=== PATIENT | female | born 1935 | race Caucasian/White ===

== ENCOUNTER 2019-01-10 13:02 | Emergency (ER) | payer OTHER ==
--- NOTE | 2019-01-10 15:18 | ER ---
Nurse's Notes [facility] Michele Name: Rosalba Solitario Age: 83 yrs Sex: Female : 1935 Arrival Date: 01/10/2019 Time: 13:05 Bed 17 Private MD: Bernardino Dodson T Diagnosis: Impacted cerumen, bilateral;Nasal congestion Presentation: 01/10 13:23 Presenting complaint: Patient states: "I have bad nasal congestion, and my ears are ss stopped up and at night I have a hard time breathing because I guess i'm so stopped up." Symptoms began 3 days ago. Transition of care: patient was not received from another setting of care. Onset of symptoms was January 07, 2019. Risk Assessment: Do you want to hurt yourself or someone else? Patient reports no desire to harm self or others. Initial Sepsis Screen: Does the patient meet any 2 criteria? No. Patient's initial sepsis screen is negative. Does the patient have a suspected source of infection? No. Patient's initial sepsis screen is negative. Care prior to arrival: None. 13:23 Method Of Arrival: Ambulatory ss 13:23 Acuity: GREGG 4 ss Historical: - Allergies: 13:24 No Known Allergies; ss - PMHx: 13:25 Hypertension; High Cholesterol; ss - PSHx: 13:25 None; ss - Immunization history:: Adult Immunizations up to date. - Social history:: Smoking status: Patient/guardian denies using tobacco. - Ebola Screening: : Patient denies exposure to infectious person Patient denies travel to an Ebola-affected area in the 21 days before illness onset. Screenin:14 Abuse screen: Denies threats or abuse. Nutritional screening: No deficits noted. em Tuberculosis screening: No symptoms or risk factors identified. 14:14 Fall Risk None identified. em Assessment: 15:18 General: Appears in no apparent distress. comfortable, Behavior is calm, cooperative, em Denies fever. Pain: Complains of pain in left ear. Neuro: Level of Consciousness is awake, alert, obeys commands, Oriented to person, place, time, situation. Cardiovascular: Capillary refill < 3 seconds Patient's skin is warm and dry. Respiratory: Airway is patent Respiratory effort is even, unlabored, Respiratory pattern is regular, symmetrical. GI: Patient currently denies nausea, vomiting. EENT: Reports nasal congestion since for 3 days pain in left ear. Derm: Skin is intact, is healthy with good turgor, Skin is pink, warm \\T\\ dry. Musculoskeletal: Capillary refill < 3 seconds, Range of motion: intact in all extremities. 15:20 General: The previous assessment is accurate, call light remains within reach. . Vital Signs: 13:25 BP 132 / 66; Pulse 89; Resp 17; Temp 97.9(O); Pulse Ox 95% on R/A; Weight 83.91 kg; ss Height 5 ft. 1 in. (154.94 cm); Pain 0/10; 13:25 Body Mass Index 34.96 (83.91 kg, 154.94 cm) ED Course: 13:05 Patient arrived in ED. mr 13:06 Bernardino Dodson MD is Private Physician. mr 13:24 Triage completed. ss 13:25 Arm band placed on right wrist. ss 13:31 Kody Clarke PA is PHCP. cp 13:31 Jesus Lopez MD is Attending Physician. cp 13:59 Strep swab sent to lab. dh3 14:14 Patient has correct armband on for positive identification. Placed in gown. Bed in low em position. Call light in reach. 14:15 Michael Subramanian LVN is Primary Nurse. em 14:55 Ear irrigation: Route left ear with Other with warm water and peroxide amount Other dh3 400mL Patient tolerated well. 15:07 Nancy Hernandez MD is Referral Physician. cp 15:20 No provider procedures requiring assistance completed. Patient did not have IV access em during this emergency room visit. Administered Medications: No medications were administered Outcome: 15:10 Discharge ordered by . cp 15:20 Discharged to home ambulatory. em 15:20 Condition: good 15:20 Discharge instructions given to patient, Instructed on discharge instructions, follow up and referral plans. medication usage, Demonstrated understanding of instructions, follow-up care, medications, Prescriptions given X 2. 15:21 Patient left the ED. em Signatures: Santiago Hannah mr Michael Subramanian LVN LVN em Mattie Dumont RN RN Kody Clarke PA PA cp Herrera, Deanna 3 Corrections: (The following items were deleted from the chart) 13:26 13:23 Presenting complaint: Patient states: "I have bad nasal congestion, and my ears ss are stopped up and at night I have a hard time breathing because I guess i'm so stopped up." ss
--- NOTE | 2019-01-10 15:19 | EDPHYS ---
Physician Documentation [facility] Karen Name: Rosalba Solitario Age: 83 yrs Sex: Female : 1935 Arrival Date: 01/10/2019 Time: 13:05 Bed 17 Private MD: Bernardino Dodson T ED Physician Jesus Lopez HPI: 01/10 13:55 This 83 yrs old Female presents to ER via Ambulatory with complaints of Sinus cp Congestion, Ear Pain. 13:55 The patient or guardian reports nasal congestion, sore throat. Onset: The cp symptoms/episode began/occurred 3 day(s) ago. Associated signs and symptoms: Pertinent positives: decreased hearing, Pertinent negatives: fever, sinus pressure, headache. Historical: - Allergies: 13:24 No Known Allergies; ss - PMHx: 13:25 Hypertension; High Cholesterol; ss - PSHx: 13:25 None; ss - Immunization history:: Adult Immunizations up to date. - Social history:: Smoking status: Patient/guardian denies using tobacco. - Ebola Screening: : Patient denies exposure to infectious person Patient denies travel to an Ebola-affected area in the 21 days before illness onset. ROS: 14:00 Constitutional: Negative for body aches, chills, fever, poor PO intake. cp 14:00 Eyes: Negative for injury, pain, redness, and discharge. cp 14:00 ENT: Positive for hearing loss, sore throat, nasal congestion, Negative for drainage from ear(s), ear pain. 14:00 Cardiovascular: Negative for chest pain. 14:00 Respiratory: Positive for cough, with no reported sputum, Negative for shortness of breath, wheezing. 14:00 Abdomen/GI: Negative for abdominal pain, nausea, vomiting, and diarrhea. 14:00 Skin: Negative for rash. 14:00 Neuro: Negative for headache. 14:00 All other systems are negative. Exam: 14:10 Constitutional: The patient appears in no acute distress, alert, awake, non-toxic, well cp developed, well nourished. 14:10 Head/Face: Normocephalic, atraumatic. cp 14:10 Eyes: Periorbital structures: appear normal, Conjunctiva: normal, no exudate, no injection, Lids and lashes: appear normal, bilaterally. 14:10 ENT: External ear(s): are unremarkable, Ear canal(s): cerumen impaction, that is moderate, bilaterally, TM's: not visable, because of cerumen, Nose: is normal, Mouth: Lips: moist, Oral mucosa: moist, Posterior pharynx: Airway: no evidence of obstruction, patent, Tonsils: no enlargement, no erythema, no exudate, Uvula: midline, exudate, is not appreciated. 14:10 Neck: ROM/movement: is normal, is supple, without pain, no range of motions limitations, no meningismus, no nuchal rigidity, Lymph nodes: no appreciated lymphadenopathy. 14:10 Chest/axilla: Inspection: normal, Palpation: is normal, no crepitus, no tenderness. 14:10 Cardiovascular: Rate: normal, Rhythm: regular. 14:10 Respiratory: the patient does not display signs of respiratory distress, Respirations: normal, no use of accessory muscles, no retractions, no splinting, no tachypnea, labored breathing, is not present, Breath sounds: are clear throughout, no decreased breath sounds, no stridor, no wheezing. 14:10 Abdomen/GI: Exam negative for discomfort, distension, guarding, Inspection: abdomen appears normal. 14:10 Skin: no rash present. Vital Signs: 13:25 BP 132 / 66; Pulse 89; Resp 17; Temp 97.9(O); Pulse Ox 95% on R/A; Weight 83.91 kg; ss Height 5 ft. 1 in. (154.94 cm); Pain 0/10; 13:25 Body Mass Index 34.96 (83.91 kg, 154.94 cm) MDM: 13:31 Patient medically screened. cp 14:00 Differential Diagnosis: Upper Respiratory Infection Sinusitis Pharyngitis Otitis Media cp Viral Syndrome Pneumonia. 15:10 Data reviewed: vital signs, nurses notes, lab test result(s). cp 15:10 Counseling: I had a detailed discussion with the patient and/or guardian regarding: the cp historical points, exam findings, and any diagnostic results supporting the discharge/admit diagnosis, lab results, the need for outpatient follow up, an ENT specialist, to return to the emergency department if symptoms worsen or persist or if there are any questions or concerns that arise at home. Response to treatment: the patient's symptoms have mildly improved after treatment, and as a result, I will discharge patient. 01/10 13:47 Order name: Strep cp Administered Medications: No medications were administered Disposition: 01/10/19 15:10 Discharged to Home. Impression: Impacted cerumen, bilateral, Nasal congestion. - Condition is Stable. - Discharge Instructions: Earwax Buildup, Adult, Ear Irrigation. - Prescriptions for Nasonex 50 mcg/actuation Nasal spray,non- aerosol - spray 2 spray by INTRANASAL route once daily As needed; 1 unit. Zyrtec 10 mg Oral Tablet - take 1 tablet by ORAL route once daily As needed; 20 tablet. - Medication Reconciliation Form, Thank You Letter, Antibiotic Education, Prescription Opioid Use form. - Follow up: Nancy Hernandez MD; When: 2 - 3 days; Reason: Recheck today's complaints. - Problem is new. - Symptoms have improved. Addendum: 01/12/2019 07:05 Co-signature as Attending Physician, Jesus Lopez MD. r n Signatures: Dispatcher [employer] EDFL Michael Subramanian, FARM MECHANIC FARM MECHANIC em Jesus Lopez MD MD rn Smirch, Shelby, RN RN ss Kody Clarke PA PA cp Corrections: (The following items were deleted from the chart) 01/10 15:21 15:10 01/10/2019 15:10 Discharged to Home. Impression: Impacted cerumen, bilateral; em Nasal congestion. Condition is Stable. Forms are Medication Reconciliation Form, Thank You Letter, Antibiotic Education, Prescription Opioid Use. Follow up: Nancy Hernandez; When: 2 - 3 days; Reason: Recheck today's complaints. Problem is new. Symptoms have improved. cp
== END 2019-01-10 15:21 | disposition home or self-care (01) ==
LOC: ER 13:02
DX: R09.81 Nasal congestion (principal); H61.23 Impacted cerumen, bilateral; I10 Essential (primary) hypertension; E78.00 Pure hypercholesterolemia, unspecified
CPT/HCPCS: 87070; 87081; 99283

== ENCOUNTER 2019-10-09 11:06 | Emergency (ER) | payer OTHER ==
--- NOTE | 2019-10-09 12:35 | RAD REPORT ---
EXAM DESCRIPTION: RAD - Knee Left 3 View - 10/09/2019 12:27 pm CLINICAL HISTORY: PAINpersistent pain following fall 1 week earlier COMPARISON: No comparisons FINDINGS: No fracture, dislocation or periosteal reaction.No joint effusion seen. No joint space rosas rowing. Mild for age marginal spurring changes are present. Mild edema seen anterior to the knee. IMPRESSION: Mild degenerative change with no acute bone or joint finding. Mild edema or contusion anterior to the knee. Clinical concerns for internal derangement or occult bony injury could be further assessed with MR im aging.
--- NOTE | 2019-10-09 12:50 | ER ---
Nurse's Notes [facility] Michele Name: Rosalba Solitario Age: 83 yrs Sex: Female : 1935 Arrival Date: 10/09/2019 Time: 11:08 Bed 26 Private MD: Bernardino Dodson T Diagnosis: Pain in left knee Presentation: 10/08 12:10 Chief complaint: Patient states: PT fell a week ago now C/O left knee pain when wh walking. Coronavirus screen: The patient has NOT traveled to a country currently being monitored by the [facility] within the last 14 days. Ebola Screen: Patient negative for fever greater than or equal to 101.5 degrees Fahrenheit, and additional compatible Ebola Virus Disease symptoms Patient denies exposure to infectious person. Initial Sepsis Screen: Does the patient meet any 2 criteria? No. Patient's initial sepsis screen is negative. Does the patient have a suspected source of infection? No. Patient's initial sepsis screen is negative. Risk Assessment: Do you want to hurt yourself or someone else? Patient reports no desire to harm self or others. 12:10 Method Of Arrival: Wheelchair 12:10 Acuity: GREGG 4 12:15 Onset of symptoms is unknown. Historical: - Allergies: 12:15 No Known Allergies; - Home Meds: 12:15 BP meds [Active]; Cholesterol meds [Active]; - PMHx: 12:15 High Cholesterol; Hypertension; Stroke; - PSHx: 12:15 None; - Immunization history:: Adult Immunizations not up to date. - Social history:: Smoking status: Patient/guardian denies using. Screenin:12 Abuse screen: Denies threats or abuse. Denies injuries from another. Nutritional screening: No deficits noted. Tuberculosis screening: No symptoms or risk factors identified. Fall Risk Fall in past 12 months (25 points). Assessment: 12:12 General: Appears in no apparent distress. Behavior is calm, cooperative, appropriate for age. Pain: Complains of pain in left knee Pain does not radiate. Pain currently is 7 out of 10 on a pain scale. Quality of pain is described as aching, Pain began a week ago Aggravated by weight bearing. Neuro: Level of Consciousness is awake, alert, obeys commands, Oriented to person, place, time, situation, Appropriate for age. Cardiovascular: Capillary refill < 3 seconds. Respiratory: Airway is patent Respiratory effort is even, unlabored, Respiratory pattern is regular, symmetrical. GI: Abdomen is flat, non-distended. : No signs and/or symptoms were reported regarding the genitourinary system. EENT: No signs and/or symptoms were reported regarding the EENT system. Derm: Skin is intact, is healthy with good turgor, Skin is pink, warm \T\ dry. normal. Musculoskeletal: Circulation, motion, and sensation intact. 13:23 Reassessment: Patient appears in no apparent distress at this time. No changes from previously documented assessment. Patient and/or family updated on plan of care and expected duration. Pain level reassessed. Patient is alert, oriented x 3, equal unlabored respirations, skin warm/dry/pink. Vital Signs: 12:10 BP 130 / 66; Pulse 78; Resp 18; Temp 97.6; Pulse Ox 100% ; Weight 81.65 kg; Height 5 wh ft. 2 in. (157.48 cm); Pain 7/10; 13:23 BP 149 / 72; Pulse 90; Resp 18; Pulse Ox 99% on R/A; wh 12:10 Body Mass Index 32.92 (81.65 kg, 157.48 cm) ED Course: 11:08 Patient arrived in ED. mr 11:09 Bernardino Dodson MD is Private Physician. mr 11:54 Goldie Atkins FNP-C is [facility]. kb 11:54 John River MD is Attending Physician. kb 12:02 Amanda Mcnair is Primary Nurse. 12:11 Triage completed. 12:14 Arm band placed on right wrist. 12:15 Patient has correct armband on for positive identification. Bed in low position. Call light in reach. Side rails up X 1. Pulse ox on. NIBP on. 12:26 X-ray completed. Portable x-ray completed in exam room. Patient tolerated procedure jb2 well. 12:31 Knee Left 3 View XRAY In Process Unspecified. EDMS 13:24 No provider procedures requiring assistance completed. Patient did not have IV access during this emergency room visit. Administered Medications: No medications were administered Outcome: 12:50 Discharge ordered by . kb 13:24 Discharged to home via wheelchair. wh 13:24 Condition: stable 13:24 Discharge instructions given to patient, Instructed on discharge instructions, follow up and referral plans. POC Demonstrated understanding of instructions, follow-up care, splint care. 13:24 Patient left the ED. Signatures: Dispatcher [employer] Goldie Marrero, OVEN TENDER-Nati OVEN TENDER-Hannah Laura mr Smith, Amanda Myers
--- NOTE | 2019-10-09 12:51 | EDPHYS ---
Physician Documentation [facility] Michele Name: Rosalba Solitario Age: 83 yrs Sex: Female : 1935 Arrival Date: 10/09/2019 Time: 11:08 Bed 26 Private MD: Bernardino Dodson T ED Physician John River HPI: 10/08 12:01 This 83 yrs old Female presents to ER via Unassigned with complaints of Leg kb Pain. 12:01 The patient presents with pain, that is acute. The complaints affect the left knee. kb Context: The problem was sustained at home, resulted from twisting of the extremity, the patient can fully bear weight, the patient is able to ambulate. Onset: The symptoms/episode began/occurred 1 week(s) ago. Modifying factors: The symptoms are alleviated by nothing. the symptoms are aggravated by weight bearing. Associated signs and symptoms: The patient has no apparent associated signs or symptoms. Treatment prior to arrival includes: no previous treatment. Severity of symptoms: At their worst the symptoms were moderate, in the emergency department the symptoms are unchanged. The patient has not experienced similar symptoms in the past. The patient has not recently seen a physician. Pt reports she was sitting in the living room and heard something in the kitchen so she jumped up and twisted left knee. Reports this happened a week ago and it hasn't gotten any better. States it is difficult to go up and down stairs. . Historical: - Allergies: 12:15 No Known Allergies; - Home Meds: 12:15 BP meds [Active]; Cholesterol meds [Active]; - PMHx: 12:15 High Cholesterol; Hypertension; Stroke; - PSHx: 12:15 None; - Immunization history:: Adult Immunizations not up to date. - Social history:: Smoking status: Patient/guardian denies using. ROS: 12:05 Constitutional: Negative for fever, chills, and weight loss, Neck: Negative for injury, kb pain, and swelling, Cardiovascular: Negative for chest pain, palpitations, and edema, Respiratory: Negative for shortness of breath, cough, wheezing, and pleuritic chest pain, Abdomen/GI: Negative for abdominal pain, nausea, vomiting, diarrhea, and constipation, Back: Negative for injury and pain, Skin: Negative for injury, rash, and discoloration, Neuro: Negative for headache, weakness, numbness, tingling, and seizure. 12:05 MS/extremity: Positive for pain, of the left knee. Exam: 12:05 Constitutional: This is a well developed, well nourished patient who is awake, alert, kb and in no acute distress. Head/Face: Normocephalic, atraumatic. Neck: Trachea midline, no thyromegaly or masses palpated, and no cervical lymphadenopathy. Supple, full range of motion without nuchal rigidity, or vertebral point tenderness. No Meningismus. Chest/axilla: Normal chest wall appearance and motion. Nontender with no deformity. No lesions are appreciated. Cardiovascular: Regular rate and rhythm with a normal S1 and S2. No gallops, murmurs, or rubs. Normal PMI, no JVD. No pulse deficits. Respiratory: Lungs have equal breath sounds bilaterally, clear to auscultation and percussion. No rales, rhonchi or wheezes noted. No increased work of breathing, no retractions or nasal flaring. Abdomen/GI: Soft, non-tender, with normal bowel sounds. No distension or tympany. No guarding or rebound. No evidence of tenderness throughout. Back: No spinal tenderness. No costovertebral tenderness. Full range of motion. Skin: Warm, dry with normal turgor. Normal color with no rashes, no lesions, and no evidence of cellulitis. MS/ Extremity: Pulses equal, no cyanosis. Neurovascular intact. Full, normal range of motion. Neuro: Awake and alert, GCS 15, oriented to person, place, time, and situation. Cranial nerves II-XII grossly intact. Motor strength 5/5 in all extremities. Sensory grossly intact. Cerebellar exam normal. Normal gait. Vital Signs: 12:10 BP 130 / 66; Pulse 78; Resp 18; Temp 97.6; Pulse Ox 100% ; Weight 81.65 kg; Height 5 wh ft. 2 in. (157.48 cm); Pain 7/10; 13:23 BP 149 / 72; Pulse 90; Resp 18; Pulse Ox 99% on R/A; wh 12:10 Body Mass Index 32.92 (81.65 kg, 157.48 cm) MDM: 11:54 Patient medically screened. kb 12:01 Differential diagnosis: closed fracture, contusion, sprain. Data reviewed: vital signs, kb nurses notes. 12:49 Data interpreted: Pulse oximetry: on room air is 100 %. Interpretation: normal. kb Counseling: I had a detailed discussion with the patient and/or guardian regarding: the historical points, exam findings, and any diagnostic results supporting the discharge/admit diagnosis, radiology results, the need for outpatient follow up, a orthopedic surgeon, to return to the emergency department if symptoms worsen or persist or if there are any questions or concerns that arise at home. 10/08 12:00 Order name: Knee Left 3 View XRAY; Complete Time: 12:49 kb 03 12:49 Order name: Knee Immobilizer; Complete Time: 13:23 kb Administered Medications: No medications were administered Disposition: 17:16 Co-signature as Attending Physician, John River MD I agree with the assessment and kdr plan of care. Disposition: 10/09/19 12:50 Discharged to Home. Impression: Pain in left knee. - Condition is Stable. - Discharge Instructions: Knee Pain, [id number]. - Medication Reconciliation Form, Thank You Letter, Antibiotic Education, Prescription Opioid Use form. - Follow up: Emergency Department; When: As needed; Reason: Worsening of condition. Follow up: Private Physician; When: 2 - 3 days; Reason: Recheck today's complaints, Continuance of care, Re-evaluation by your physician. Signatures: Dispatcher [employer] EDPR Goldie Atkins, MEDICAL OFFICE REPRESENTATIVE-C MEDICAL OFFICE REPRESENTATIVE-Ckb John River MD MD [facility] Amanda Mcnair Corrections: (The following items were deleted from the chart) 13:24 12:50 10/09/2019 12:50 Discharged to Home. Impression: Pain in left knee. Condition is wh Stable. Forms are Medication Reconciliation Form, Thank You Letter, Antibiotic Education, Prescription Opioid Use. Follow up: Emergency Department; When: As needed; Reason: Worsening of condition. Follow up: Private Physician; When: 2 - 3 days; Reason: Recheck today's complaints, Continuance of care, Re-evaluation by your physician. kb
[2019-10-09 13:29] VITALS: TEMP 97.6
[2019-10-09 13:30] VITALS: BP 149/72; O2SAT 99
== END 2019-10-09 13:24 | disposition home or self-care (01) ==
LOC: ER 11:06
DX: M25.562 Pain in left knee (principal); I10 Essential (primary) hypertension; E78.00 Pure hypercholesterolemia, unspecified
CPT/HCPCS: 99283

== ENCOUNTER 2020-04-17 10:36 | Emergency (ER) | payer OTHER ==
[2020-04-17] MEDS ORDERED: ACETAMINOPHEN 325 MG TABLET ONE (11:25)
--- NOTE | 2020-04-17 11:38 | ER ---
Nurse's Notes [facility] Michele Name: Rosalba Solitario Age: 84 yrs Sex: Female : 1935 Arrival Date: 04/17/2020 Time: 10:38 Bed 20 Private MD: Bernardino Dodson T Diagnosis: Displaced fracture of lateral malleolus of right fibula Presentation: 04/17 10:55 Chief complaint: Right ankle and foot pain after mechanical fall from standing onto hb knees 3 days ago. Coronavirus screen: At this time, the client does not indicate any symptoms associated with coronavirus-19. Ebola Screen: No symptoms or risks identified at this time. Initial Sepsis Screen: Does the patient meet any 2 criteria? No. Patient's initial sepsis screen is negative. Does the patient have a suspected source of infection? No. Patient's initial sepsis screen is negative. Risk Assessment: Do you want to hurt yourself or someone else? Patient reports no desire to harm self or others. Onset of symptoms was April 14, 2020. 10:55 Method Of Arrival: Ambulatory hb 10:55 Acuity: GREGG 4 hb Historical: - Allergies: 10:57 No Known Drug Allergies; hb - Home Meds: 10:57 BP meds [Active]; cholesterol meds [Active]; hb - PMHx: 10:57 High Cholesterol; Hypertension; stroke; hb - PSHx: 10:57 None; hb - Immunization history:: Adult Immunizations up to date. - Social history:: Smoking status: Patient denies any tobacco usage or history of. - Family history:: not pertinent. Screenin:58 Abuse screen: Denies threats or abuse. Denies injuries from another. Nutritional hb screening: No deficits noted. Tuberculosis screening: No symptoms or risk factors identified. Fall Risk None identified. Assessment: 10:58 General: Appears in no apparent distress. Behavior is calm, cooperative. Pain: Pain hb currently is 6 out of 10 on a pain scale. Neuro: Level of Consciousness is awake, alert, obeys commands, Oriented to person, place, time, situation. Cardiovascular: Capillary refill < 3 seconds Patient's skin is warm and dry. Respiratory: Airway is patent Respiratory effort is even, unlabored, Respiratory pattern is regular, symmetrical. GI: No signs and/or symptoms were reported involving the gastrointestinal system. : No signs and/or symptoms were reported regarding the genitourinary system. EENT: No signs and/or symptoms were reported regarding the EENT system. Derm: Skin is pink, warm \T\ dry. Musculoskeletal: Reports right ankle pain. 11:36 Reassessment: Patient appears in no apparent distress at this time. Patient and/or hb family updated on plan of care and expected duration. Pain level reassessed. Patient is alert, oriented x 3, equal unlabored respirations, skin warm/dry/pink. Vital Signs: 10:55 BP 158 / 100; Pulse 63; Resp 16; Temp 98.3; Pulse Ox 100% ; Weight 77.11 kg; Height 5 hb ft. 3 in. (160.02 cm); Pain 6/10; 10:55 Body Mass Index 30.11 (77.11 kg, 160.02 cm) hb ED Course: 10:38 Patient arrived in ED. ds1 10:38 Bernardino Dodson MD is Private Physician. ds1 10:48 Kody Sharma MD is Attending Physician. rohit 10:54 Latricia Bennett, JUDD is Primary Nurse. hb 10:57 Triage completed. hb 10:57 Arm band placed on. hb 10:58 Patient has correct armband on for positive identification. Bed in low position. Call hb light in reach. Side rails up X 1. 11:24 Ankle Right 3 View XRAY In Process Unspecified. EDMS 11:27 Foot Right 3 View XRAY In Process Unspecified. EDMS 11:37 Bernardino Dodson MD is Referral Physician. rohit 11:37 Luiz Raymundo MD is Referral Physician. rohit 11:56 No provider procedures requiring assistance completed. Patient did not have IV access hb during this emergency room visit. Administered Medications: 11:15 Drug: Tylenol 650 mg Route: PO; 11:58 Follow up: Response: No adverse reaction hb 11:35 Drug: [place] 5 mg-325 mg 1 tabs Route: PO; hb 11:59 Follow up: Response: No adverse reaction hb Outcome: 11:38 Discharge ordered by . rohit 12:02 Patient left the ED. aj1 Signatures: Dispatcher [employer] Marga Sharma RN RN aj1 Kody Sharma MD MD cha Sanford, Demi ds1 Bennett, Latricia, RN RN hb Cueto, Eden, RN RN ah
--- NOTE | 2020-04-17 11:38 | EDPHYS ---
Physician Documentation [facility] Karen Name: Rosalba Solitario Age: 84 yrs Sex: Female : 1935 Arrival Date: 04/17/2020 Time: 10:38 Bed 20 Private MD: Bernardino Dodson T ED Physician Kody Sharma HPI: 04/17 11:31 This 84 yrs old Female presents to ER via Ambulatory with complaints of Ankle rohit Injury. 11:31 The patient presents with an abrasion, an abscess, a bite, a burn, a contusion, a crush rohit injury, a deformity, a laceration, a history of running out of pain medications, a penetrating injury, a puncture wound, a rash. The complaints affect the right ankle, right ankle. Onset: The symptoms/episode began/occurred 3 day(s) ago. Context: resulted from the patient falling, The mechanism of injury involved inversion of the affected ankle. The patient can partially bear weight on the affected extremity. Associated signs and symptoms: The patient has no apparent associated signs or symptoms. Modifying factors: The symptoms are alleviated by elevation of extremity, ice packs, the symptoms are aggravated by weight bearing, movement. Severity of symptoms: At their worst the symptoms were mild, moderate, in the emergency department the symptoms are unchanged. The patient has not experienced similar symptoms in the past. Historical: - Allergies: 10:57 No Known Drug Allergies; hb - Home Meds: 10:57 BP meds [Active]; cholesterol meds [Active]; hb - PMHx: 10:57 High Cholesterol; Hypertension; stroke; hb - PSHx: 10:57 None; hb - Immunization history:: Adult Immunizations up to date. - Social history:: Smoking status: Patient denies any tobacco usage or history of. - Family history:: not pertinent. ROS: 11:31 Constitutional: Negative for fever, chills, and weight loss, Eyes: Negative for injury, rohit pain, redness, and discharge, ENT: Negative for injury, pain, and discharge, Neck: Negative for injury, pain, and swelling, Cardiovascular: Negative for chest pain, palpitations, and edema, Respiratory: Negative for shortness of breath, cough, wheezing, and pleuritic chest pain, Abdomen/GI: Negative for abdominal pain, nausea, vomiting, diarrhea, and constipation, Back: Negative for injury and pain, : Negative for injury, bleeding, discharge, and swelling, Skin: Negative for injury, rash, and discoloration, Neuro: Negative for headache, weakness, numbness, tingling, and seizure, Psych: Negative for depression, anxiety, suicide ideation, homicidal ideation, and hallucinations, Allergy/Immunology: Negative for hives, rash, and allergies, Endocrine: Negative for neck swelling, polydipsia, polyuria, polyphagia, and marked weight changes, Hematologic/Lymphatic: Negative for swollen nodes, abnormal bleeding, and unusual bruising. 11:31 MS/extremity: Positive for decreased range of motion, pain, swelling, tenderness. Exam: 11:35 Constitutional: This is a well developed, well nourished patient who is awake, alert, rohit and in no acute distress. Head/Face: Normocephalic, atraumatic. Eyes: Pupils equal round and reactive to light, extra-ocular motions intact. Lids and lashes normal. Conjunctiva and sclera are non-icteric and not injected. Cornea within normal limits. Periorbital areas with no swelling, redness, or edema. ENT: Nares patent. No nasal discharge, no septal abnormalities noted. Tympanic membranes are normal and external auditory canals are clear. Oropharynx with no redness, swelling, or masses, exudates, or evidence of obstruction, uvula midline. Mucous membranes moist. Neck: Trachea midline, no thyromegaly or masses palpated, and no cervical lymphadenopathy. Supple, full range of motion without nuchal rigidity, or vertebral point tenderness. No Meningismus. Chest/axilla: Normal chest wall appearance and motion. Nontender with no deformity. No lesions are appreciated. Cardiovascular: Regular rate and rhythm with a normal S1 and S2. No gallops, murmurs, or rubs. Normal PMI, no JVD. No pulse deficits. Respiratory: Lungs have equal breath sounds bilaterally, clear to auscultation and percussion. No rales, rhonchi or wheezes noted. No increased work of breathing, no retractions or nasal flaring. Abdomen/GI: Soft, non-tender, with normal bowel sounds. No distension or tympany. No guarding or rebound. No evidence of tenderness throughout. Back: No spinal tenderness. No costovertebral tenderness. Full range of motion. Skin: Warm, dry with normal turgor. Normal color with no rashes, no lesions, and no evidence of cellulitis. Neuro: Awake and alert, GCS 15, oriented to person, place, time, and situation. Cranial nerves II-XII grossly intact. Motor strength 5/5 in all extremities. Sensory grossly intact. Cerebellar exam normal. Normal gait. Psych: Awake, alert, with orientation to person, place and time. Behavior, mood, and affect are within normal limits. 11:35 Musculoskeletal/extremity: ROM: full active range of motion, full passive range of motion, limited active range of motion due to pain, limited passive range of motion due to pain, Circulation is intact in all extremities. Sensation intact. Compartment Syndrome exam of affected extremity: is normal. DVT Exam: negative Homans' sign noted on exam, no appreciated bluish discoloration, no erythema, no increased warmth, pain, swelling, tenderness. Vital Signs: 10:55 BP 158 / 100; Pulse 63; Resp 16; Temp 98.3; Pulse Ox 100% ; Weight 77.11 kg; Height 5 hb ft. 3 in. (160.02 cm); Pain 6/10; 10:55 Body Mass Index 30.11 (77.11 kg, 160.02 cm) MDM: 11:02 Patient medically screened. [facility] 11:35 Data reviewed: vital signs, nurses notes, radiologic studies, plain films. [facility] 04/17 10:59 Order name: Ankle Right 3 View XRAY 04/17 11:03 Order name: Foot Right 3 View XRAY [facility] 04/17 11:30 Order name: Walking boot; Complete Time: 11:59 [facility] 04/17 11:30 Order name: Ice pack; Complete Time: 11:35 [facility] Administered Medications: 11:15 Drug: Tylenol 650 mg Route: PO; 11:58 Follow up: Response: No adverse reaction 11:35 Drug: [place] 5 mg-325 mg 1 tabs Route: PO; 11:59 Follow up: Response: No adverse reaction Disposition: 04/17/20 11:38 Discharged to Home. Impression: Displaced fracture of lateral malleolus of right fibula. - Condition is Stable. - Discharge Instructions: Fibular Ankle Fracture Treated With or Without Immobilization, Adult, Fall Prevention in the Home, Fall Prevention in the Home, [id number], Walking Boot. - Prescriptions for Tylenol- Codeine #3 300-30 mg Oral Tablet - take 1 tablet by ORAL route every 4 hours As needed; 24 tablet. - Medication Reconciliation Form, Thank You Letter, Antibiotic Education, Prescription Opioid Use form. - Follow up: Bernardino Dodson MD; When: 2 - 3 days; Reason: Recheck today's complaints, Continuance of care, Re-evaluation by your physician. Follow up: Luiz Raymundo MD; When: 2 - 3 days; Reason: Recheck today's complaints, Continuance of care, Re-evaluation by your physician. - Problem is new. - Symptoms have improved. Signatures: Dispatcher [employer] EDMS Marga Guzman RN RN aj1 Kody Sharma MD MD cha Baxter, Heather, RN RN Eden Cueto RN RN Corrections: (The following items were deleted from the chart) 12:02 11:38 04/17/2020 11:38 Discharged to Home. Impression: Displaced fracture of lateral aj1 malleolus of right fibula. Condition is Stable. Forms are Medication Reconciliation Form, Thank You Letter, Antibiotic Education, Prescription Opioid Use. Follow up: Bernardino Dodson; When: 2 - 3 days; Reason: Recheck today's complaints, Continuance of care, Re-evaluation by your physician. Follow up: Luiz Raymundo; When: 2 - 3 days; Reason: Recheck today's complaints, Continuance of care, Re-evaluation by your physician. Problem is new. Symptoms have improved. rohit
[2020-04-17] MEDS ORDERED: HYDROCODONE/APAP 5/325 MG TAB ONE (11:45)
--- NOTE | 2020-04-17 11:58 | RAD REPORT ---
EXAM DESCRIPTION: RAD - Ankle Right 3 View - 04/17/2020 11:23 am CLINICAL HISTORY: PAIN, right ankle pain COMPARISON: No comparisons FINDINGS: Subtle oblique lucent focus present in the distal fibula. Finding is suspicious for a nond isplaced, nonangulated fracture. Remodeling from a remote fibular fracture is possible and needs az elation with any history of prior fibula/ankle fracture. Distal tibia is intact. Ankle mortise is nor mal. No other evidence for fracture or acute bone process. Soft tissue edema is present. Small plantar spur present. IMPRESSION: Patient has cortical irregularity of the distal fibula suspicious for a nondisplaced, no nangulated fracture. The fibula findings are potentially cortical irregular remodeling from prior fracture. This needs cli nical correlation. Small plantar spur.
--- NOTE | 2020-04-17 12:00 | RAD REPORT ---
EXAM DESCRIPTION: RAD - Foot Right 3 View - 04/17/2020 11:26 am CLINICAL HISTORY: PAIN, fall, foot and ankle pain COMPARISON: No comparisons FINDINGS: Distal fibula findings are separately detailed. No foot fracture is identified. Mild degen erative change at the first MTP joint. Small plantar spur is present. No air or foreign body in the soft tissues. IMPRESSION: No fracture or acute right foot finding. Distal right fibula findings are separately detailed.
[2020-04-17 12:14] VITALS: BP 158/100; TEMP 98.3; O2SAT 100
== END 2020-04-17 12:02 | disposition home or self-care (01) ==
LOC: ER 10:36
DX: S82.61XA Displaced fracture of lateral malleolus of right fibula, initial encounter for closed fracture (principal); W19.XXXA Unspecified fall, initial encounter; Y93.9 Activity, unspecified; Y92.9 Unspecified place or not applicable; I10 Essential (primary) hypertension; E78.00 Pure hypercholesterolemia, unspecified
CPT/HCPCS: 99283

== ENCOUNTER 2022-02-12 14:15 | Inpatient (IN) | payer OTHER ==
[2022-02-12 14:58] LABS: Absolute Lymphocytes (CBC) 1.3 K/uL (0.7-4.9); Hematocrit 32.5 % (36.0-45.0); Lymphocytes % 16.5 % (15.3-44.8); MCV 85.1 fL (80-100); RBC Red Blood Cell Count 3.82 M/uL (3.86-4.86)
[2022-02-12 15:01] LABS: Protime INR 1.29
[2022-02-12 15:07] LABS: Albumin 2.9 g/dL (3.4-5.0); Bilirubin Direct 0.2 mg/dL (0-0.2); Bilirubin Total 0.5 mg/dL (0.2-1.0); Magnesium 1.9 mg/dL (1.8-2.4); Potassium 3.2 mmol/L (3.5-5.1); Protein, Total 6.9 g/dL (6.4-8.2)
[2022-02-12] MEDS ORDERED: NA CHLORIDE 0.9% 250 ML ONE ×2 (15:32→17:13)
[2022-02-12] MEDS ORDERED: KCL 20 MEQ/100 mL IVPB 100 ML IV ONE (15:33)
--- NOTE | 2022-02-12 15:34 | RAD REPORT ---
EXAM DESCRIPTION: CT - Head Brain Wo Cont - 02/12/2022 3:25 pm CLINICAL HISTORY: weakness left arm Headache, drowsiness, CVA symptomology COMPARISON: No comparisons TECHNIQUE: All CT scans are performed using dose optimization technique as appropriate and may inclu de automated exposure control or mA/KV adjustment according to patient size. FINDINGS: No intracranial hemorrhage, hydrocephalus or extra-axial fluid collection.Prominent brain atrophy is noted with chronic microvascular ischemic changes evident.Gliosis is seen in the left fron nathaniel and left parietal region compatible with old infarction. The paranasal sinuses and mastoids are clear. The calvarium is intact. IMPRESSION: No acute intracranial abnormality. Areas of old infarction noted left cerebral hemisphe re. If there is continued clinical concern for CVA, MR imaging of the brain would be recommended.
--- NOTE | 2022-02-12 17:05 | RAD REPORT ---
EXAM DESCRIPTION: MRI - Brain Wo Cont - 02/12/2022 4:53 pm CLINICAL HISTORY: AMS Headache, drowsiness COMPARISON: Head Brain Wo Cont dated 02/12/2022 TECHNIQUE: Multi-sequence, multiplanar MR imaging of the brain was performed without contrast. FINDINGS: No intracranial hemorrhage, hydrocephalus or extra-axial fluid collections. No edema or sh ift of midline structures. No findings to suspect brain mass.Significant areas of gliosis are seen in the left cerebral hemisphere compatible with old infarction. Round 12 mm via of diffusion restrictio n left cerebellar hemisphere noted compatible with acute CVA. Punctate areas of similar signal abnorm ality seen right cerebral hemisphere. Moderate sized area of diffusion restriction is seen posterior right frontal lobe cortex measuring 26 mm. Several additional micro infarcts seen right frontal lobe, largest measuring 8 mm. Midline structures are normally formed. Mastoid air cells and paranasal sinuses are clear. IMPRESSION: Multiple areas of diffusion restriction are seen bilaterally, including both cerebellar hemispheres as well as the right frontal lobe compatible with acute to subacute CVA. The pattern of CVA suggests embolic phenomenon is potentially occurring.
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
[2022-02-12] MEDS ORDERED: FOLIC ACID 5 MG/ML VIAL ONE (18:08)
[2022-02-12] MEDS ORDERED: ENOXAPARIN 60 MG/0.6 ML SQ ONE (18:08)
--- NOTE | 2022-02-12 18:43 | RAD REPORT ---
EXAM DESCRIPTION: - CP - 02/12/2022 6:21 pm CLINICAL HISTORY: cva Headache, CVA COMPARISON: No comparisons TECHNIQUE: Real-time sonographic evaluation of both carotid systems was performed. Doppler interroga tion was performed with waveform tracing bilaterally. FINDINGS: Normal high resistance waveforms are noted in both external carotid arteries. The common c arotid arteries and internal carotid arteries show normal low resistance waveforms. Small amount of hard plaque is seen in both carotid bulbs. Peak systolic and end diastolic velocity v alues and the ICA/CCA ratios are in the non-hemodynamically significant range. Antegrade flow seen in both vertebral arteries. IMPRESSION: Small amount of hard plaque is seen in both carotid bulbs. No evidence of a hemodynamically significant stenosis.
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
[2022-02-12] MEDS ORDERED: ONDANSETRON 4 MG/2 ML VIAL IV PRN (21:35)
[2022-02-12] MEDS ORDERED: ACETAMINOPHEN 500 MG TAB PO PRN (21:35)
[2022-02-12] MEDS: NA CHLORIDE 0.9% 1,000 ML IV SCH (22:13)
[2022-02-12] MEDS: ATORVASTATIN 40 MG TAB PO SCH (22:14)
[2022-02-12 22:34] VITALS: O2SAT 98; BMI 28.3
[2022-02-13 03:52] LABS: Absolute Lymphocytes (CBC) 1.4 K/uL (0.7-4.9); Hematocrit 28.8 % (36.0-45.0); Lymphocytes % 18.3 % (15.3-44.8); MCV 85.3 fL (80-100); MPV 7.9 fL (7.6-11.3); RBC Red Blood Cell Count 3.38 M/uL (3.86-4.86)
[2022-02-13 04:16] LABS: AST/SGOT 14 U/L (15-37); Albumin 2.4 g/dL (3.4-5.0); Alkaline Phosphatase 117 U/L (45-117); BUN Blood Urea Nitrogen 17 mg/dL (7-18); Bicarbonate 22 mmol/L (21-32); Bilirubin Total 0.5 mg/dL (0.2-1.0); Glomerular Filtration Rate 58 ml/min (=/>90); Glucose Level 95 mg/dL (74-106); HDL Cholesterol 41 mg/dL (40-60); LDL Cholesterol, Calculated 95 mg/dL (<130); Magnesium 1.7 mg/dL (1.8-2.4); Potassium 3.3 mmol/L (3.5-5.1); Protein, Total 6.4 g/dL (6.4-8.2); Sodium Level 140 mmol/L (136-145)
[2022-02-13 04:24] LABS: ALT/SGPT < 10 U/L (12-78)
[2022-02-13] MEDS ORDERED: MAGNESIUM SULFATE 1 gm IVPB 1 GM/100 ML BAG IV ONE (05:00)
[2022-02-13] MEDS ORDERED: PNEUMOCOCCAL VACCINE 0.5 ML IMVAC ONE (08:00)
[2022-02-13] MEDS ORDERED: POTASSIUM CL SA 10 MEQ TAB PO ONE (09:00)
[2022-02-13] MEDS ORDERED: ENOXAPARIN 100 MG/ML SYR SQ SCH (09:00)
[2022-02-13] MEDS: ASPIRIN EC 81 MG TAB PO SCH (09:03)
[2022-02-13] MEDS: FOLIC ACID 1 MG TABLET PO SCH (09:03)
--- NOTE | 2022-02-13 13:48 | EKG ---
Test Date: 2022-02-12 Test Time: 14:26:25 Inverform Machine Operator: MB MEASUREMENT RESULTS: Intervals: Rate: 86 WV: 282 QRSD: 80 QT: 396 QTc: 473 Hammett: P: 73 WV: 282 QRS: -10 T: -5 INTERPRETIVE STATEMENTS: Sinus rhythm with sinus arrhythmia with 1st degree AV block Low voltage QRS Nonspecific ST abnormality Abnormal ECG Compared to ECG 10/27/2004 14:39:00 First degree AV block now present Low QRS voltage now present ST (T wave) deviation now present Electronically Signed On 02-13-22 13:45:54 CDT by Pascual Morales
--- NOTE | 2022-02-13 16:21 | RAD REPORT ---
EXAM DESCRIPTION: MRI - MRA Head Wo Cont - 02/13/2022 3:14 pm CLINICAL HISTORY: CVA, possible basilar artery occlusion COMPARISON: MRI brain 02/12/2022 TECHNIQUE: Axial and coronal 3D [id number] image acquisition was performed. 3D rotational images were generated with source and reconstruction images reviewed. Horizontal and vertical axis rotation al views generated using MIP protocol. FINDINGS: Major venous sinuses are patent. There is no aneurysm or vascular malformation identifiabl e. No dissection in the distal internal carotid arteries. Cavernous and supraclinoid atherosclerotic changes narrow the left internal carotid artery. There is some motion degradation present. ICA dissec tion is on not confirmed. The patient has multiple focal areas of significant stenosis in the right a nterior cerebral artery A1 segment. Moderately severe atherosclerotic changes narrow the right M1 MCA segment. Moderate atherosclerotic changes are scattered in the bilateral MCA distributions. Mild to moderate atherosclerotic changes are seen in the bilateral posterior cerebral arteries. Dista l most right vertebral artery is unremarkable. In the proximal portion of the basilar artery there is a linear filling defect seen on these source and reconstruction rotational images. This extends into the distal portion of the left vertebral artery. This could be an area of thrombus. However, the santiago ear shaped could indicate a more rare basilar artery dissection. True and false lumen would both be o pacified in this setting. No total occlusion of the basilar artery. 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 This also involves the distal m ost left vertebral artery. No total occlusion of the basilar artery. Patient has significant intracranial atherosclerotic changes as detailed.
[2022-02-13] MEDS: NA CHLORIDE 0.9% 1,000 ML IV SCH (16:58)
[2022-02-13] MEDS ORDERED: ENOXAPARIN 80 MG/0.8 ML SQ SCH (18:00)
[2022-02-13] MEDS: ATORVASTATIN 40 MG TAB PO SCH (20:45)
[2022-02-13] MEDS: APIXABAN 2.5 MG TABLET PO SCH (20:45)
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
[2022-02-14 05:41] LABS: Absolute Lymphocytes (CBC) 1.4 K/uL (0.7-4.9); Hematocrit 27.3 % (36.0-45.0); Lymphocytes % 18.8 % (15.3-44.8); MCV 85.4 fL (80-100); MPV 7.7 fL (7.6-11.3)
[2022-02-14 05:56] LABS: AST/SGOT 14 U/L (15-37); Albumin 2.1 g/dL (3.4-5.0); Alkaline Phosphatase 102 U/L (45-117); BUN Blood Urea Nitrogen 13 mg/dL (7-18); Bicarbonate 23 mmol/L (21-32); Bilirubin Total 0.3 mg/dL (0.2-1.0); Glomerular Filtration Rate 66 ml/min (=/>90); Glucose Level 94 mg/dL (74-106); Magnesium 2.1 mg/dL (1.8-2.4); Potassium 4.4 mmol/L (3.5-5.1); Protein, Total 5.5 g/dL (6.4-8.2); Sodium Level 142 mmol/L (136-145)
[2022-02-14 05:59] LABS: ALT/SGPT < 10 U/L (12-78)
--- NOTE | 2022-02-14 07:14 | ECHO ---
HEIGHT: 5 ft 1 in WEIGHT: 150 lb 4.8 oz DATE OF STUDY: 02/13/[address]: Shoaib Griffin NP 2-DIMENSIONAL: YES M.MODE: YES DOPPLER: YES COLOR FLOW: YES TDS: NO PORTABLE: YES DEFINITY: NO BUBBLE STUDY: NO DIAGNOSIS: CEREBRAL VASCULAR ACCIDENT CARDIAC HISTORY: CATHERIZATION: SURGERY: PROSTHETIC VALVE: PACEMAKER: MEASUREMENTS (cm) DIASTOLIC (NORMALS) SYSTOLIC (NORMALS) IVSd 1.0 (0.6-1.2) LA Diam 3.6 (1.9-4.0) LVEF 61% LVIDd 4.4 (3.5-5.7) LVIDs 3.0 (2.0-3.5) %FS 32% LVPWd 1.0 (0.6-1.2) Ao Diam 2.5 (2.0-3.7) 2 DIMENSIONAL ASSESSMENT: RIGHT ATRIUM: NORMAL LEFT ATRIUM: NORMAL RIGHT VENTRICLE: NORMAL LEFT VENTRICLE: NORMAL TRICUSPID VALVE: NORMAL MITRAL VALVE: PULMONIC VALVE: NORMAL AORTIC VALVE: CALCIFIED PERICARDIAL EFFUSION: NONE AORTIC ROOT: NORMAL LEFT VENTRICULAR WALL MOTION: NORMAL DOPPLER/COLOR FLOW: SEE BELOW COMMENTS: NORMAL LEFT VENTRICULAR EJECTION FRACTION 60-65%. NORMAL WALL MOTION. MODERATE AORTIC STENOSIS WITH MILD AORTIC REGURGITATION. MILD MITRAL REGURGITATION. TECHNOLOGIST: Sven MURRY
[2022-02-14 08:24] VITALS: BP 134/64; TEMP 97.6
[2022-02-14] MEDS: NA CHLORIDE 0.9% 1,000 ML IV SCH (08:37)
[2022-02-14] MEDS: APIXABAN 2.5 MG TABLET PO SCH (08:38)
[2022-02-14] MEDS: ASPIRIN EC 81 MG TAB PO SCH (08:38)
[2022-02-14] MEDS: FOLIC ACID 1 MG TABLET PO SCH (08:38)
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
--- NOTE | 2022-02-18 21:04 | P.PN ---
Date of Service: 02/13/22 Subjective Patient is feeling better. Imaging studies are pending. Will discuss with Neurology as well. Physical Examination - Physical Exam General: Alert, In no apparent distress, Oriented x3 Respiratory: Clear to auscultation bilaterally, Normal air movement Cardiovascular: Regular rate/rhythm, Normal S1 S2 Gastrointestinal: Normal bowel sounds, No tenderness Musculoskeletal: No tenderness Integumentary: No rashes Neurological: Normal gait, Normal strength at 5/5 x4 extr, Normal tone, Cranial nerves 3-12 intact, Normal affect, Abnormal speech (Some expressive aphasia noted) Assessment and Plan - Plan Assessment: Acute CVA Hypertension Hyperlipidemia Hypokalemia Plan: Acute CVA: MRI pending; continue anti-platelet therapy and statin therapy. Appreciate Neurology input as well. Hypertension: Patient unsure of her medications will restart when verified, will allow for permissive hypertension tonight. Hyperlipidemia: Patient unsure of her home medication started on atorvastatin. Hypokalemia: Replaced in ER, protocol in place.
== END 2022-02-14 12:08 | disposition home or self-care (01) | DRG 65 ==
LOC: ER 14:15 → ERHOLD 20:15 → 2ND 21:31
PROVIDERS: ADMIT Hospitalist; ATTEND Hospitalist
DX: I63.12 Cerebral infarction due to embolism of basilar artery (principal); I69.351 Hemiplegia and hemiparesis following cerebral infarction affecting right dominant side; R47.01 Aphasia; I10 Essential (primary) hypertension; E78.5 Hyperlipidemia, unspecified; E87.6 Hypokalemia; I69.320 Aphasia following cerebral infarction; D64.9 Anemia, unspecified; Z20.822 Contact with and (suspected) exposure to COVID-19
CPT/HCPCS: 36415; 70450; 70544; 70551; 80048; 80053; 80061; 80076; 82550; 83735; 84132; 85025; 85610; 85730; 93005; 93306; 93880; 96365; 96366; 96367; 96368; 96372; 97116; 97161; 99285; J1650; J3475; J3480; J7030; J7050; U0003